=== PATIENT | female | born 1945 | race Caucasian/White ===

== ENCOUNTER 2023-03-25 18:32 | Inpatient (IN) | payer SELFPAY ==
[~2023-03-25] VITALS: Ht 154.9 cm; Wt 83.7 kg
[2023-03-25 18:40] VITALS: O2SAT 100
[2023-03-25 19:46] LABS: BASOPHILS % 0.8 % (0.0-2.0); EOSINOPHILS % 2.4 % (0.0-5.0); HEMATOCRIT. 39.9 % (36.0-48.0); HEMOGLOBIN. 12.8 g/dL (12.0-16.0); LYMPHOCYTES % 34.1 % (20.0-50.0); MEAN CORPUSCULAR HEMOGLOBIN 25.9 pg (28.0-32.0); MEAN PLATELET VOLUME 8.7 fl (7.4-10.4); MONOCYTES % 8.2 % (2.0-8.0); NEUTROPHILS % 54.5 % (40.0-76.0); PLATELET 249 x1000/uL (130-400); RED BLOOD CELL COUNT 4.92 mill/uL (4.2-5.4); RED CELL DISTRIBUTION WIDTH 16.7 % (11.6-14.6)
[2023-03-25 19:55] LABS: PROTHROMBIN TIME 10.5 sec (9.6-11.0)
[2023-03-25 19:58] LABS: CHLORIDE 97 mEq/L (98-107); INDEX HEMOLYSI 2 (1-3); INDEX ICTERIC 1 (1-4); INDEX LIPEMIC 1 (1-3); POTASSIUM 3.7 mEq/L (3.5-5.1); SODIUM 132 mEq/L (136-145)
[2023-03-25 20:11] LABS: ALANINE AMINOTRANSFERASE 17 IU/L (13-61); ALBUMIN 3.7 g/dL (3.4-5.0); ASPARTATE AMINOTRANSFERASE 15 IU/L (15-37); BILIRUBIN TOTAL 0.3 mg/dL (0.1-1.0); CALCIUM 9.4 mg/dL (8.5-10.1); CARBON DIOXIDE 27 mEq/L (21-32); CREATININE 1.1 mg/dL (0.6-1.3); GLUCOSE 102 mg/dL (70-105); PROTEIN TOTAL 8.5 g/dL (6.0-8.3); UREA NITROGEN BLOOD 24 mg/dL (7-21)
[2023-03-25 20:28] LABS: TROPONIN I HIGH SENSITIVITY < 4 ng/L (<54)
[2023-03-25] MEDS ORDERED: ASPIRIN 81MG TABLET PO ONE (23:30)
[2023-03-26 00:52] LABS: CLARITY URINE CLEAR (CLEAR); COLOR URINE YELLOW (YELLOW); GLUCOSE URINE NEGATIVE (NEGATIVE); KETONES URINE NEGATIVE (NEGATIVE); LEUKOCYTE ESTERASE URINE NEGATIVE (NEGATIVE); NITRITE URINE NEGATIVE (NEGATIVE); OCCULT BLOOD URINE TRACE (NEGATIVE); PH URINE 6.5 (4.5-8.0); PROTEIN URINE NEGATIVE (NEGATIVE); SPECIFIC GRAVITY URINE 1.029 (1.005-1.030); UROBILINOGEN URINE 0.2 E.U./dL (0.2-1.0)
[2023-03-26 00:55] LABS: BACTERIA URINE NONE SEEN; RBC URINE 0-2 /hpf (0-2); YEAST URINE NONE SEEN
[2023-03-26] MEDS ORDERED: ACETAMINOPHEN 325MG TABLET PO PRN ×2 (01:15)
[2023-03-26] MEDS ORDERED: DIPHENHYDRAMINE 50MG/ML VIAL IV PRN (01:15)
[2023-03-26] MEDS ORDERED: GUAIFENESIN 200MG/10ML SUGAR FREE UDC PO PRN (01:15)
[2023-03-26] MEDS ORDERED: ONDANSETRON HCL 4MG/2ML INJ IV PRN (01:15)
[2023-03-26 01:46] LABS: SQUAMOUS EPITHELIAL CELL URINE FEW /lpf (RARE/1+)
[2023-03-26 01:51] LABS: WBC URINE 0-2 /hpf (0-2)
[2023-03-26 02:35] VITALS: BP 115/72; PULSE 74; RESP 20; TEMP 97.9
[2023-03-26] MEDS ORDERED: DEXTROSE 50% WATER 50ML SYRINGE IV PRN (03:00)
[2023-03-26] MEDS ORDERED: IOHEXOL-350 100 ML BOTTLE ONE (03:22)
[2023-03-26 04:00] VITALS: BP 98/60; PULSE 68; RESP 20; TEMP 97.7
[2023-03-26] MEDS: SODIUM CHLORIDE 0.9% INJ 3ML FLUSH IVF SCH ×2 (06:00→14:00)
[2023-03-26] MEDS: BLOOD SUGAR DIAGNOSTIC STRIP TEST SCH ×2 (07:12→13:02)
[2023-03-26] MEDS: INSULIN LISPRO 100 UNITS/ML SUBCUT SCH ×2 (07:13→12:40)
[2023-03-26 08:00] VITALS: BP 140/70; PULSE 78; RESP 17; TEMP 96.3
[2023-03-26 09:00] LABS: TROPONIN I HIGH SENSITIVITY 4 ng/L (<54)
[2023-03-26] MEDS ORDERED: ASPIRIN 81MG EC TABLET PO SCH (09:00)
[2023-03-26] MEDS ORDERED: ENOXAPARIN 40MG/0.4ML SYR SUBCUT SCH (09:00)
[2023-03-26] MEDS ORDERED: FAMOTIDINE 20MG TABLET PO SCH (09:00)
[2023-03-26] MEDS ORDERED: METF-414 PO (09:34)
[2023-03-26] MEDS ORDERED: HYDR25TA PO (09:34)
[2023-03-26] MEDS ORDERED: ENAL-77 PO (09:34)
[2023-03-26] MEDS ORDERED: ENALAPRIL 5MG TABLET PO SCH (10:00)
[2023-03-26 12:00] VITALS: BP 101/69; PULSE 69; RESP 16; TEMP 96.3
== END 2023-03-26 15:37 | disposition left against medical advice (07) | DRG 203 ==
LOC: ER 18:32 → MICUSO 23:25 → EDBEDREQ 23:47 → 8WST 03-26 01:44
PROVIDERS: ADMIT Internal Medicine; ATTEND Internal Medicine
DX: R07.89 Other chest pain (principal); I11.0 Hypertensive heart disease with heart failure; I50.9 Heart failure, unspecified; E11.9 Type 2 diabetes mellitus without complications; Z53.29 Procedure and treatment not carried out because of patient's decision for other reasons; Z20.822 Contact with and (suspected) exposure to COVID-19; M19.90 Unspecified osteoarthritis, unspecified site; Z79.4 Long term (current) use of insulin
CPT/HCPCS: 36415; 71045; 71275; 80053; 81003; 82962; 83036; 83880; 84484; 85025; 85379; 87426; 93005; 93306; 99285; J1650; Q9967